=== PATIENT | female | born 1950 | race Caucasian/White ===

== ENCOUNTER 2020-05-04 11:38 | Emergency (ER) | payer MEDICARE, OTHER ==
--- NOTE | 2020-05-04 12:39 | EDM.PDOC ---
ED HPI GENERAL MEDICAL PROBLEM - General Chief Complaint: General Stated Complaint: FELL Time Seen by Provider: 05/04/20 12:37 - History of Present Illness INITIAL COMMENTS - FREE TEXT/NARRATIVE: Patient presents emergency department after apparently she had fallen and hit her face in a parking lot and then someone felt she may not be appropriate to drive the car to a local store and apparently the police were called because wero jc thought she may not be acting right. She remembers everything and thinks she may have been a little dazed and she does have some bruising and swelling to her upper lip area, currently her is here and he states she is now acting normally. Patient does speak a little bit slow at baseline and has a history of anxiety but currently has no aches or pains and is able to move all of her extremities. - Related Data Allergies Allergy/AdvReac Type Severity Reaction Status Date / Time No Known Allergies Allergy Verified 05/04/20 12:07 Home Meds: Home Meds PARoxetine [Paxil] 30 mg PO DAILY 05/04/20 [History] atorvaSTATin [Lipitor] 20 mg PO DAILY 05/04/20 [History] lisinopriL [Lisinopril] 20 mg PO DAILY 05/04/20 [History] Past Medical History HEENT History: Reports: Cataract Cardiovascular History: Reports: High Cholesterol, Hypertension Musculoskeletal History: Reports: Fracture Neurological History: Reports: Migraines Psychiatric History: Reports: Anxiety, Depression - Past Surgical History GI Surgical History: Reports: Appendectomy Social & Family History - Tobacco Use Smoking Status *Q: Heavy Tobacco Smoker Years of Tobacco use: 40 Packs/Tins Daily: 0.5 - Caffeine Use Caffeine Use: Reports: None - Recreational Drug Use Recreational Drug Use: No ED ROS GENERAL - Review of Systems Review Of Systems: Comprehensive ROS is negative, except as noted in HPI. ED EXAM, GENERAL - Physical Exam Exam: See Below Nose: Normal Inspection Throat/Mouth: Normal Inspection Head: Atraumatic (Atraumatic other than in HPI no step-offs or crepitus no trauma to the head noted) Neck: Normal Inspection Respiratory/Chest: No Respiratory Distress Cardiovascular: Normal Peripheral Pulses, Regular Rate, Rhythm GI/Abdominal: Normal Bowel Sounds Extremities: Normal Inspection Neurological: Alert Skin Exam: Warm, Dry Course - Vital Signs Text/Narrative:: CT the head looks good,, patient may have a little mild concussion but is acting normally now and scintillations for the following diagnosis Last Recorded V/S: Last Vital Signs Temp 95.7 F L 05/04/20 12:03 Pulse 55 L 05/04/20 12:03 Resp 17 05/04/20 12:03 BP 146/90 H 05/04/20 12:03 Pulse Ox 99 05/04/20 12:03 - Orders/Labs/Meds Labs: Laboratory Tests 05/04/20 05/04/20 05/04/20 Range/Units 12:36 12:36 12:39 WBC 6.2 (4.5-11.0) K/uL RBC 4.45 (3.30-5.50) M/uL Hgb 13.5 (12.0-15.0) g/dL Hct 42.5 (36.0-48.0) % MCV 96 (80-98) fL MCH 30 (27-31) pg MCHC 32 (32-36) % Plt Count 272 (150-400) K/uL Neut % (Auto) 50 (36-66) % Lymph % (Auto) 37 (24-44) % [place] % (Auto) 9 H (2-6) % Eos % (Auto) 4 (2-4) % Baso % (Auto) 1 (0-1) % Sodium 142 (140-148) mmol/L Potassium 3.8 (3.6-5.2) mmol/L Chloride 106 (100-108) mmol/L Carbon Dioxide 25 (21-32) mmol/L Anion Gap 11.4 (5.0-14.0) mmol/L BUN 12 (7-18) mg/dL Creatinine 0.7 (0.6-1.0) mg/dL Est Cr Clr Drug Dosing 59.15 mL/min Estimated GFR (MDRD) > 60 (>60) Glucose 79 (74-106) mg/dL POC Glucose 81 (74-106) MG/DL Calcium 9.0 (8.5-10.1) mg/dL Departure - Departure Time of Disposition: 14:05 Disposition: Home, Self-Care 01 Clinical Impression: Head injury - Discharge Information Instructions: Jaw Contusion Referrals: PCP,None [Primary Care Provider] - Forms: ED Department Discharge Sepsis Event Note (ED) - Evaluation Sepsis Screening Result: No Definite Risk - Focused Exam Vital Signs: Vital Signs Temp Pulse Resp BP Pulse Ox 05/04/20 12:03 95.7 F L 55 L 17 146/90 H 99
--- NOTE | 2020-05-04 13:30 | CT ---
Head wo Cont CLINICAL HISTORY: Episode of confusion COMPARISON: None TECHNIQUE: Transverse scans were obtained from the base of the skull through the vertex without IV contrast on a multislice, multidetector CT scanner. Auto dosage reduction and iterative reconstruction techniques employed. FINDINGS: No focal abnormal parenchymal density is identified. There is no mass effect, hemorrhage, or extraaxial collection. The basal cisterns and sulci over the convexities are mildly prominent. The ventricles are normal for age. IMPRESSION: Mild age-related atrophy. No acute intracranial abnormality identified
== END 2020-05-04 14:26 | disposition home or self-care (01) ==
LOC: JP.ED 11:38
DX: S09.90XA Unspecified injury of head, initial encounter (principal); E78.00 Pure hypercholesterolemia, unspecified; I10 Essential (primary) hypertension; F41.9 Anxiety disorder, unspecified; F32.9 Major depressive disorder, single episode, unspecified; F17.210 Nicotine dependence, cigarettes, uncomplicated; Z79.899 Other long term (current) drug therapy; W22.8XXA Striking against or struck by other objects, initial encounter; Y92.481 Parking lot as the place of occurrence of the external cause
CPT/HCPCS: 36415; 70450; 70450-26; 80048; 82962; 85025; 99284-25

== ENCOUNTER 2020-07-01 09:45 | Emergency (ER) | payer MEDICARE, OTHER ==
--- NOTE | 2020-07-01 10:45 | EDM.PDOC ---
ED HPI GENERAL MEDICAL PROBLEM - General Chief Complaint: General Stated Complaint: FELL AT WORK Time Seen by Provider: 07/01/20 10:30 Source of Information: Reports: Patient, Family History Limitations: Reports: No Limitations - History of Present Illness INITIAL COMMENTS - FREE TEXT/NARRATIVE: 70-year-old female stumbled at work, some boxes fell on top of her and she fell to the floor. This was witnessed by a coworker who insisted she come in and get checked out. She has no complaints and did not get injured. She ambulating without difficulty, has no head or neck pain, shortness of breath, nausea or vomiting, extremity pain. Onset: Sudden Duration: Hour(s): (1 hour ago) Associated Symptoms: Reports: No Other Symptoms denies Pain Score (Numeric/FACES): 0 - Related Data Allergies Allergy/AdvReac Type Severity Reaction Status Date / Time No Known Allergies Allergy Verified 07/01/20 10:29 Home Meds: Home Meds PARoxetine [Paxil] 30 mg PO DAILY 05/04/20 [History] atorvaSTATin [Lipitor] 20 mg PO DAILY 05/04/20 [History] lisinopriL [Lisinopril] 20 mg PO DAILY 05/04/20 [History] Past Medical History HEENT History: Reports: Cataract Cardiovascular History: Reports: High Cholesterol, Hypertension Musculoskeletal History: Reports: Fracture Neurological History: Reports: Migraines Psychiatric History: Reports: Anxiety, Depression - Infectious Disease History Infectious Disease History: Reports: Chicken Pox, Measles, Mumps - Past Surgical History HEENT Surgical History: Reports: Cataract Surgery GI Surgical History: Reports: Appendectomy Social & Family History - Tobacco Use Tobacco Use Status *Q: Current Every Day Tobacco User Years of Tobacco use: 40 Packs/Tins Daily: 0.5 Used Tobacco, but Quit: No Second Hand Smoke Exposure: Yes - Caffeine Use Caffeine Use: Reports: None - Alcohol Use Days Per Week of Alcohol Use: 0 - Recreational Drug Use Recreational Drug Use: No ED ROS GENERAL - Review of Systems Review Of Systems: See Below Constitutional: Denies: Fever, Chills HEENT: Denies: Vision Change Respiratory: Denies: Shortness of Breath (Vision) Cardiovascular: Denies: Chest Pain (No chest pain) GI/Abdominal: Denies: Nausea, Vomiting Musculoskeletal: Reports: No Symptoms Skin: Denies: Bruising (No bruising) Neurological: Denies: Headache (No headache ) ED EXAM, GENERAL - Physical Exam Exam: See Below Exam Limited By: No Limitations General Appearance: Alert, No Apparent Distress (Hemoccult collected) Eye Exam: Bilateral Eye: Normal Inspection ('s are fine) Head: Atraumatic Neck: Supple, Non-Tender Respiratory/Chest: Lungs Clear (Head is atraumatic neck is supple lungs are clear) Cardiovascular: Regular Rate, Rhythm Neurological: Alert, Oriented, Other (Patient ambulated without difficulty, Romberg was negative no pronator drift) Psychiatric: Normal Affect, Normal Mood Course - Vital Signs Last Recorded V/S: Last Vital Signs Temp 96 F L 07/01/20 10:25 Pulse 72 07/01/20 10:37 Resp 16 07/01/20 10:25 BP 153/72 H 07/01/20 10:37 Pulse Ox 98 07/01/20 10:25 - Re-Assessments/Exams Free Text/Narrative Re-Assessment/Exam: 07/01/20 15:02 I find no objective evidence of injury in this patient. She was reassured and warned that she may develop some mild soft tissue pain over the next several days from the fall, if she develops a focal pain which she is concerned about or is not improving satisfactorily she can return at any time Departure - Departure Time of Disposition: 10:52 Disposition: Home, Self-Care 01 Clinical Impression: Fall Qualifiers: Encounter type: initial encounter Qualified Code(s): W19.XXXA - Unspecified fall, initial encounter - Discharge Information Instructions: Fall Prevention in the Home, Adult Referrals: Luis Quispe MD [Primary Care Provider] - Forms: ED Department Discharge Care Plan Goals: Expect some soreness over the next few days, return if significant discomfort or concerns. No medication changes. Sepsis Event Note (ED) - Evaluation Sepsis Screening Result: No Definite Risk - Focused Exam Vital Signs: Vital Signs Temp Pulse Resp BP Pulse Ox 07/01/20 10:37 72 153/72 H 07/01/20 10:25 96 F L 77 16 182/90 H 98
== END 2020-07-01 10:52 | disposition home or self-care (01) ==
LOC: JP.ED 09:45
DX: Z04.3 Encounter for examination and observation following other accident (principal); I10 Essential (primary) hypertension; E78.00 Pure hypercholesterolemia, unspecified; F41.9 Anxiety disorder, unspecified; F32.9 Major depressive disorder, single episode, unspecified; F17.210 Nicotine dependence, cigarettes, uncomplicated; Z90.49 Acquired absence of other specified parts of digestive tract; Z79.899 Other long term (current) drug therapy; W01.198A Fall on same level from slipping, tripping and stumbling with subsequent striking against other object, initial encounter; Y99.0 Civilian activity done for income or pay
CPT/HCPCS: 99282